=== PATIENT | female | born 1990 | race African-American/Black ===

== ENCOUNTER 2021-07-31 20:55 | Emergency (ER) | payer BC, SELFPAY | END 2021-07-31 22:07 | disposition home or self-care (01) | LOC: CSHERS 20:55 | DX: L03.115 Cellulitis of right lower limb (principal); E11.9 Type 2 diabetes mellitus without complications | CPT/HCPCS: 99283 ==

== ENCOUNTER 2021-11-18 08:03 | Emergency (ER) | payer BC, SELFPAY ==
[2021-11-18] MEDS ORDERED: Lidocaine 1% w/Epinephrine 1:100K 20 ML VIAL ONE (08:15)
== END 2021-11-18 09:05 | disposition home or self-care (01) ==
LOC: CSHERS 08:03
DX: L02.214 Cutaneous abscess of groin (principal); E11.9 Type 2 diabetes mellitus without complications
CPT/HCPCS: 10060

== ENCOUNTER 2022-04-01 17:40 | Emergency (ER) | payer SELFPAY ==
[2022-04-01] MEDS ORDERED: Ketorolac Tromethamine 30 MG/ML VIAL ONE (21:13)
== END 2022-04-01 21:23 | disposition home or self-care (01) ==
LOC: CSHERS 17:40
DX: M62.838 Other muscle spasm (principal); E11.9 Type 2 diabetes mellitus without complications
CPT/HCPCS: 96372; 99283; J1885

== ENCOUNTER 2022-04-04 10:13 | Emergency (ER) | payer BC, SELFPAY | END 2022-04-04 13:49 | disposition home or self-care (01) | LOC: CSHERS 10:13 | DX: B02.9 Zoster without complications (principal); E11.9 Type 2 diabetes mellitus without complications | CPT/HCPCS: 99283 ==

== ENCOUNTER 2024-03-13 20:03 | Emergency (ER) | payer BC, SELFPAY ==
[2024-03-13] MEDS ORDERED: diphenhydrAMINE 50 MG/ML VIAL ONE (20:45)
[2024-03-13] MEDS ORDERED: Metoclopramide HCl 10 MG (2 mL) VIAL ONE (20:45)
== END 2024-03-13 21:53 | disposition home or self-care (01) ==
LOC: CSHERS 20:03
DX: R51.9 Headache, unspecified (principal); R42 Dizziness and giddiness; E11.9 Type 2 diabetes mellitus without complications; I10 Essential (primary) hypertension; Z79.84 Long term (current) use of oral hypoglycemic drugs
CPT/HCPCS: 70450; 96374; 96375; J1200; J2765

== ENCOUNTER 2025-03-01 10:25 | Emergency (ER) | payer BC | END 2025-03-01 11:00 | disposition home or self-care (01) | LOC: CSHERS 10:25 | DX: L08.9 Local infection of the skin and subcutaneous tissue, unspecified (principal); E11.9 Type 2 diabetes mellitus without complications; I10 Essential (primary) hypertension; Z79.84 Long term (current) use of oral hypoglycemic drugs; Z79.899 Other long term (current) drug therapy | CPT/HCPCS: 99281 ==

== ENCOUNTER 2025-04-14 19:07 | Emergency (ER) | payer BC | END 2025-04-14 20:40 | disposition home or self-care (01) | LOC: CSHERS 19:07 | DX: B34.9 Viral infection, unspecified (principal); E11.9 Type 2 diabetes mellitus without complications; I10 Essential (primary) hypertension; Z79.899 Other long term (current) drug therapy; Z79.84 Long term (current) use of oral hypoglycemic drugs | CPT/HCPCS: 87081; 87428; 87430; 99283 ==

== ENCOUNTER 2025-05-10 11:14 | Emergency (ER) | payer BC ==
[2025-05-10] MEDS ORDERED: Dexamethasone 10 MG/ML VIAL ONE (12:28)
== END 2025-05-10 12:45 | disposition home or self-care (01) ==
LOC: CSHERS 11:14
DX: M54.12 Radiculopathy, cervical region (principal); R29.701 NIHSS score 1; E11.9 Type 2 diabetes mellitus without complications; I10 Essential (primary) hypertension
CPT/HCPCS: 99283; J1100